=== PATIENT | female | born 1960 | race Asian ===

== ENCOUNTER 2016-07-11 14:09 | Emergency (ER) | payer OTHER ==
[~2016-07-11] VITALS: Ht 149.9 cm; Wt 59.1 kg
[~2016-07-11 14:09] MED LIST: ALBUTEROL SULF8.5 GM IH; ALLEGRA-D 121 TABLET PO; AMOXICILLIN500 MG PO; CALCIUM 600 +1 EAC3 PO; DAILY VITAMIN1 EAC8 PO; DIAZEPAM5 MG PO; HYDROCODONE-AP1 EAC6 PO; IBUPROFEN800 MG PO; LEVAQUIN500 MG PO; LOPERAMIDE2 M1 PO; MACROBID100 MG PO; MOTRIN600 MG PO; MOTRIN800 MG PO; MUSCLE RELAXER; NAPROXEN500 MG PO; NASONEX17 GM BOTH NARES; PREDNISONE20 MG PO; SALINE NASAL SP45 ML BOTH NARES; TESSALON PERLE100 MG PO; ULTRAM50 MG PO; ZITHROMAX Z-PA250 MG PO; ZOFRAN4 MG PO
[2016-07-11 15:05] LABS: HEMATOCRIT 37.4 % (36.0-46.0); MCH 29.1 PG (29.0-34.0); MCHC 32.9 G/DL (30.0-36.0); MCV 88.4 FL (83-99); MEAN PLAT.VOLUME 8.8 uM^3 (9.5-12.4); PLATELET COUNT 360 K/uL (156-360); RBC DIS.WIDTH-SD 38.8 % (39-53); RED BLOOD COUNT 4.23 M/uL (3.80-5.20); WHITE BLOOD COUNT 5.6 K/uL (4.1-10.2)
[2016-07-11 15:13] LABS: CHLORIDE 106 mEq/L (99-109); POTASSIUM 3.6 mEq/L (3.7-5.4); SODIUM 139 mEq/L (136-147)
[2016-07-11 15:14] LABS: GLUCOSE 136 mg/dL (70-99)
[2016-07-11 15:16] LABS: ANION GAP 8 MEQ/L (2-14)
[2016-07-11 15:18] LABS: GFR ESTIMATE (CALCULATED) > 59 mL/min/
[2016-07-11 15:19] LABS: UREA NITROGEN (BUN) 16 mg/dL (9-23)
[2016-07-11 15:26] LABS: TROP-I INTERPRETATION NEGATIVE; TROPONIN-I < 0.01 ng/mL (0.0-0.30)
[2016-07-11 17:37] LABS: TROP-I INTERPRETATION NEGATIVE; TROPONIN-I 0.01 ng/mL (0.0-0.30)
[2016-07-11] MEDS ORDERED: FLEXERIL10 MG PO (17:51)
[2016-07-11] MEDS ORDERED: NAPROSYN500 MG PO (17:51)
[2016-07-11] MEDS ORDERED: ULTRAM50 MG PO (18:08)
[2016-07-11 18:12] VITALS: BP 118/67
== END 2016-07-11 18:14 | disposition home or self-care (01) ==
LOC: EME 14:09
PROVIDERS: Nurse Practitioner Family
DX: R07.89 Other chest pain (principal); S46.912A Strain of unspecified muscle, fascia and tendon at shoulder and upper arm level, left arm, initial encounter; Y99.0 Civilian activity done for income or pay; X50.9XXA Other and unspecified overexertion or strenuous movements or postures, initial encounter
CPT/HCPCS: 71020; 80048; 84484; 85027; 93005; 99281; 99284

== ENCOUNTER 2016-08-08 14:39 | Emergency (ER) | payer OTHER ==
[~2016-08-08] VITALS: Ht 149.9 cm; Wt 60.2 kg
[~2016-08-08 14:39] MED LIST changes: +FLEXERIL10 MG PO; +NAPROSYN500 MG PO
[2016-08-08] MEDS ORDERED: MULTIPLE VITAM1 EAC1 PO (14:52)
[2016-08-08] MEDS ORDERED: ULTRAM50 MG PO (16:07)
[2016-08-08 16:28] VITALS: BP 102/58
== END 2016-08-08 16:28 | disposition home or self-care (01) ==
LOC: EME 14:39
DX: S40.011A Contusion of right shoulder, initial encounter (principal); S80.02XA Contusion of left knee, initial encounter; M54.2 Cervicalgia; W01.0XXA Fall on same level from slipping, tripping and stumbling without subsequent striking against object, initial encounter; Y99.0 Civilian activity done for income or pay; Y92.238 Other place in hospital as the place of occurrence of the external cause
CPT/HCPCS: 72040; 73030; 73564; 99281; 99284

== ENCOUNTER 2017-02-20 12:08 | Observation (INO) | payer OTHER ==
[~2017-02-20] VITALS: Ht 149.9 cm; Wt 58.9 kg
[~2017-02-20 12:08] MED LIST changes: +MULTIPLE VITAM1 EAC1 PO
[2017-02-20 12:53] LABS: BASOPHIL COUNT 0.1 K/uL (0-0.1); EOSINOPHIL (%) 2.3 % (0-5); EOSINOPHIL COUNT 0.1 K/uL (0-0.3); HEMATOCRIT 38.4 % (36.0-46.0); IMMATURE GRANULOCYTE (%) 0.4 % (0.0-0.7); INSTRUMENT ABS NEUTROPHIL CT 2.8 K/uL; LYMPHOCYTE COUNT 1.7 K/uL (1.0-2.8); MCH 28.8 PG (29.0-34.0); MCHC 32.8 G/DL (30.0-36.0); MCV 87.9 FL (83-99); MEAN PLAT.VOLUME 9.1 uM^3 (9.5-12.4); MONOCYTE (%) 9.3 % (3-12); MONOCYTE COUNT 0.5 K/uL (0-0.8); NEUTROPHIL (%) 54.8 % (45-76); NEUTROPHIL COUNT 2.8 K/uL (1.8-6.4); PLATELET COUNT 348 K/uL (156-360); RBC DIS.WIDTH-CV 12.7 % (11.8-14.6); RBC DIS.WIDTH-SD 41.4 % (39-53); RED BLOOD COUNT 4.37 M/uL (3.80-5.20); WHITE BLOOD COUNT 5.2 K/uL (4.1-10.2)
[2017-02-20 13:03] LABS: CHLORIDE 105 mEq/L (99-109); POTASSIUM 3.9 mEq/L (3.7-5.4); SODIUM 141 mEq/L (136-147)
[2017-02-20 13:06] LABS: GLUCOSE 98 mg/dL (70-99)
[2017-02-20 13:07] LABS: ANION GAP 11 MEQ/L (2-14)
[2017-02-20 13:08] LABS: TOTAL BILIRUBIN 0.6 mg/dL (0.0-1.0)
[2017-02-20 13:09] LABS: ALKALINE PHOSPHATASE 103 IU/L (3-129); GFR ESTIMATE (CALCULATED) > 59 mL/min/
[2017-02-20 13:10] LABS: UREA NITROGEN (BUN) 14 mg/dL (9-23)
[2017-02-20] MEDS ORDERED: NAPROSYN500 MG PO (16:41)
[2017-02-20] MEDS ORDERED: ASCORBIC ACID500 M3 PO (16:42)
[2017-02-20 17:49] VITALS: BP 120/62
[2017-02-20 21:01] VITALS: BP 101/53
[2017-02-20 23:48] VITALS: BP 104/59
[2017-02-21 03:51] VITALS: BP 134/70
[2017-02-21 05:31] LABS: BASOPHIL COUNT 0.1 K/uL (0-0.1); EOSINOPHIL (%) 3.1 % (0-5); EOSINOPHIL COUNT 0.2 K/uL (0-0.3); HEMATOCRIT 34.5 % (36.0-46.0); IMMATURE GRANULOCYTE (%) 0.2 % (0.0-0.7); INSTRUMENT ABS NEUTROPHIL CT 2.2 K/uL; LYMPHOCYTE COUNT 2.9 K/uL (1.0-2.8); MCH 28.2 PG (29.0-34.0); MCHC 31.9 G/DL (30.0-36.0); MCV 88.5 FL (83-99); MONOCYTE COUNT 0.5 K/uL (0-0.8); NEUTROPHIL (%) 36.8 % (45-76); NEUTROPHIL COUNT 2.2 K/uL (1.8-6.4); PLATELET COUNT 301 K/uL (156-360); RBC DIS.WIDTH-CV 12.9 % (11.8-14.6); RBC DIS.WIDTH-SD 41.9 % (39-53); WHITE BLOOD COUNT 5.9 K/uL (4.1-10.2)
[2017-02-21 05:54] LABS: ANION GAP 6 MEQ/L (2-14); CHLORIDE 106 MEQ/L (99-109); GFR ESTIMATE (CALCULATED) > 59 mL/min/; GLUCOSE 99 mg/dL (70-99); POTASSIUM 3.6 MEQ/L (3.7-5.4); SAMPLE HEMOLYSIS CHECK 0; SAMPLE ICTERIC CHECK 0; SAMPLE LIPEMIA CHECK 0; SODIUM 139 MEQ/L (136-147); UREA NITROGEN (BUN) 16 mg/dL (9-23)
[2017-02-21 07:49] VITALS: BP 112/61
[2017-02-21] MEDS ORDERED: METAXALONE800 MG PO (11:25)
[2017-02-21] MEDS ORDERED: LIDODERM 5% P1 PATCH TD (11:25)
[2017-02-21 12:12] VITALS: BP 95/51
== END 2017-02-21 13:59 | disposition home or self-care (01) ==
LOC: EME 12:08 → EDOF 15:54 → 5WEST 15:54 → ENRESERV 16:18 → 5WEST 17:39 → ENPENDDIS 02-21 → 5WEST 02-21 13:59
PROVIDERS: Emergency Medicine; Student in an Organized Health Care Education/Training Program
DX: S39.012A Strain of muscle, fascia and tendon of lower back, initial encounter (principal); X50.0XXA Overexertion from strenuous movement or load, initial encounter; Y92.239 Unspecified place in hospital as the place of occurrence of the external cause; Y99.0 Civilian activity done for income or pay; R11.2 Nausea with vomiting, unspecified
CPT/HCPCS: 72100; 74000; 80048; 80053; 81003; 85025; 93005; 99281; 99285; G0378; G8978 GP CJ; G8979 GP CI; G8980 CJ; G8987 GO CJ; G8988 GO CH; G8989 CJ; J1650; J2250; J2405; J3010; J7030

== ENCOUNTER 2017-04-30 18:55 | Emergency (ER) | payer OTHER ==
[~2017-04-30] VITALS: Ht 149.9 cm; Wt 61.3 kg
[~2017-04-30 18:55] MED LIST changes: +ASCORBIC ACID500 M3 PO; +LIDODERM 5% P1 PATCH TD; +METAXALONE800 MG PO
[2017-04-30 19:08] VITALS: BP 158/95
[2017-04-30] MEDS ORDERED: NAPROSYN500 MG PO (23:19)
[2017-04-30] MEDS ORDERED: FLEXERIL10 MG PO (23:19)
== END 2017-05-01 00:33 | disposition home or self-care (01) ==
LOC: EME 18:55
DX: S16.1XXA Strain of muscle, fascia and tendon at neck level, initial encounter (principal); S00.83XA Contusion of other part of head, initial encounter; S00.211A Abrasion of right eyelid and periocular area, initial encounter; W18.49XA Other slipping, tripping and stumbling without falling, initial encounter; Y92.233 Cafeteria of hospital as the place of occurrence of the external cause; Y99.0 Civilian activity done for income or pay; Z88.5 Allergy status to narcotic agent
CPT/HCPCS: 72125; 99281; 99284